=== PATIENT | female | born 1945 | race Caucasian/White ===

== ENCOUNTER 2020-07-01 23:50 | Outpatient (CLI) | payer MEDICARE, OTHER | END 2020-07-01 23:51 | disposition critical access hospital (66) | LOC: EMS 23:50 | PROVIDERS: ATTEND Surgery | DX: R11.2 Nausea with vomiting, unspecified (principal); R19.7 Diarrhea, unspecified | CPT/HCPCS: A0425; A0427 ==

== ENCOUNTER 2020-07-02 00:09 | Observation (INO) | payer MEDICARE, OTHER ==
[2020-07-02] MEDS ORDERED: SODIUM CHLORIDE 0.9% 1,000 ML IV STA (00:23)
--- NOTE | 2020-07-02 00:25 | ED Physician Documentation ---
PD HPI NVD - Stated complaint Stated Complaint: VOMITED BLOOD/DIARRHEA - Chief complaint Chief Complaint: Abd Pain - History obtained from History obtained from: Patient - History of Present Illness Timing - onset: Enter time (0500), Yesterday Timing - duration: Hours Timing - details: Abrupt onset, Still present Associated symptoms: Hematemesis. No: Fever, Abdominal pain Contributing factors: Bad food Improved by: Vomiting Similar symptoms before: Has not had sx before Recently seen: Not recently seen - Additonal information Additional information: Previously well 75-year-old female with history of hypertension and high cholesterol had enchiladas with her family the night prior to beginning symptoms. At 5 AM yesterday morning the patient developed acute nausea and v omiting. She states that she has been vomiting all day long she developed diarrhea associated with this and she felt that this was likely due to the food that she had cheese implicating the chicken. She has not had these symptoms previously. In route to the hospital in the ambulance the patient vomited some blood. She indicates that she has had some dry heaves and no no bleeding or blood and that she has had brown liquid stool. Review of Systems Constitutional: reports: Fatigue. denies: Fever, Chills Eyes: denies: Decreased vision Ears: denies: Ear pain Nose: denies: Rhinorrhea / runny nose, Congestion Throat: denies: Sore throat Cardiac: denies: Chest pain / pressure, Palpitations Respiratory: denies: Dyspnea, Cough GI: reports: Nausea, Vomiting, Diarrhea. denies: Abdominal Pain : denies: Dysuria, Frequency Skin: denies: Rash Musculoskeletal: denies: Neck pain, Back pain, Extremity pain Neurologic: reports: Generalized weakness, Other (dizziness). 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, Oophrectomy, Other (surgery for uterine cancer) - Present Medications Home Medications: Ambulatory Orders Medication Instructions Recorded Confirmed Losartan/Hydrochlorothiazide 1 each PO DAILY 12/29/13 07/02/20 [Losartan-Hctz 50-12.5 mg Tab] - Allergies Allergies/Adverse Reactions: Allergies Allergy/AdvReac Type Severity Reaction Status Date / Time Penicillins Allergy Mild Hives Verified 07/02/20 00:26 - Social History Does the pt smoke?: No Smoking Status: Never smoker Does the pt drink ETOH?: Yes PD ED PE NORMAL - Vitals Vital signs reviewed: Yes (hypertensive ) - General General: Alert and oriented X 3, Well developed/nourished, Other (appears mildly anxious) - HEENT HEENT: Atraumatic, PERRL, EOMI - Neck Neck: Supple, no meningeal sign - Cardiac Cardiac: RRR, No murmur - Respiratory Respiratory: No respiratory distress, Clear bilaterally - Abdomen Abdomen: Normal bowel sounds, Soft, Non distended, No organomegaly, Other (mild general tenderness) - Back Back: No CVA TTP, No spinal TTP - Derm Derm: Normal color, Warm and dry, No rash - Extremities Extremities: No deformity, No edema - Neuro Neuro: Alert and oriented 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, 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, No motor deficit, No sensory deficit, Normal speech Eye Opening: Spontaneous Motor: Obeys Commands Verbal: Oriented GCS Score: 15 - Psych Psych: Normal mood, Normal affect Results - Vitals Vitals: Vital Signs - 24 hr 07/02/20 07/02/20 07/02/20 00:10 00:24 02:20 Temperature 36.5 C 36.5 C Heart Rate 88 77 73 Respiratory 16 15 18 Rate Blood Pressure 156/82 H 156/83 H 154/79 H O2 Saturation 100 99 98 07/02/20 04:00 Temperature 36.7 C Heart Rate 73 Respiratory 13 Rate Blood Pressure 125/64 O2 Saturation 94 Oxygen O2 Source Room air - Labs Labs: Laboratory Tests 07/02/20 00:40 WBC 12.5 H RBC 4.33 Hgb 13.4 Hct 40.9 MCV 94.5 MCH 30.9 MCHC 32.8 RDW 13.0 Plt Count 243 MPV 10.5 Neut # (Auto) 11.4 H Lymph # (Auto) 0.6 L Lumpkin # (Auto) 0.4 Eos # (Auto) 0.0 Baso # (Auto) 0.0 Absolute Nucleated RBC 0.00 Nucleated RBC % 0.0 PD MEDICAL DECISION MAKING - ED course Complexity details: reviewed old records, reviewed results, re-evaluated patient, considered differential, d/w patient ED course: 75 y/o female with acute onset of vomiting and diarrhea has been sick for 24 hours with non-stop vomiting. She has not had diarrhea while she was in the ED but she did have vomiting of coffee grounds here and she had vomiting of blood in the ambulance. In the ED she is administered IV saline and potassium. Her K+ is 2.9 and she is receiving k-riders 10meq/hour. She remains nauseated. Her blood counts are normal to start. This appears to be food poisoning with persistent vomiting and now bleeding as well. I have asked the hospitalist to place the patient in observation for continued treatment. Departure - Departure Disposition: ED Place in Observation Clinical Impression: Gastroenteritis, Upper GI bleeding
[2020-07-02 00:47] LABS: BASOPHILS % (AUTO) 0.2 %; HGB - HEMOGLOBIN 13.4 g/dL (12.0-16.0); LYMPHOCYTES # (AUTO) 0.6 10^3/uL (1.5-3.5); LYMPHOCYTES % (AUTO) 5.1 %; MEAN CORPUSCULAR HEMOGLOBIN 30.9 pg (27.0-31.0); MEAN CORPUSCULAR HGB CONC 32.8 g/dL (32.0-36.0); MEAN CORPUSCULAR VOLUME 94.5 fL (81.0-99.0); MEAN PLATELET VOLUME 10.5 fL (7.9-10.8); MONOCYTES # (AUTO) 0.4 10^3/uL (0.0-1.0); NEUTROPHILS # (AUTO) 11.4 10^3/uL (1.5-6.6); NEUTROPHILS % (AUTO) 91.1 %; PLT - PLATELET COUNT 243 10^3/uL (130-450); RED BLOOD COUNT 4.33 10^6/uL (4.20-5.40); WHITE BLOOD COUNT 12.5 x10^3/uL (4.8-10.8)
[2020-07-02] MEDS ORDERED: ONDANSETRON 4 MG/2 ML VIAL ONE (02:38)
[2020-07-02] MEDS ORDERED: POTASSIUM CHLORIDE 10 MEQ CAPSULE PO ONE (02:50)
[2020-07-02] MEDS ORDERED: POTASSIUM CHLOR 10 MEQ/100 ML 10 MEQ/100 ML BAG IV ONE ×2 (03:25→05:01)
[2020-07-02] MEDS ORDERED: ONDANSETRON 4 MG/2 ML VIAL IVP PRN (06:16)
[2020-07-02] MEDS ORDERED: SODIUM CHLORIDE FLUSH 0.9% 10 ML SYRINGE IVP PRN (06:16)
[2020-07-02] MEDS ORDERED: PANTOPRAZOLE 40 MG VIAL IVP SCH (07:00)
[2020-07-02] MEDS ORDERED: POTASSIUM CHLOR 10 MEQ/100 ML 40 MEQ/400 ML BAG IV ONE (08:38)
[2020-07-02] MEDS ORDERED: NS W/20 MEQ KCL 1,000 ML IV ONE (08:38)
[2020-07-02] MEDS ORDERED: SODIUM CHLORIDE FLUSH 0.9% 10 ML SYRINGE ONE (08:39)
[2020-07-02] MEDS: NS W/20 MEQ KCL 1,000 ML IV SCH ×3 (13:52→22:21)
[2020-07-02] MEDS: POTASSIUM CHLOR 10 MEQ/100 ML 10 MEQ/100 ML BAG IV SCH ×5 (13:52→23:58)
[2020-07-02] MEDS: SODIUM CHLORIDE FLUSH 0.9% 10 ML SYRINGE IVP SCH ×3 (13:52→23:59)
--- NOTE | 2020-07-02 14:30 | PHARMACY PROGRESS NOTE ---
- Best Possible Medication History Admit Date and Time: 07/02/20 0616 Processed by: Nursing (COMBINED PHARMACY - NURSING COMPLETION) Medication History completed: Yes As the person ultimately responsible for medication therapy, providers are able to order a medication from an existing home medication list in [facility] via the "Reconcile Routine" prior to Confirmation of that medication by desktop support technician. Such practice is discouraged except when the physician, in their clinical judgment, deems that a medical need exists for a medication without regard to previous use.
[2020-07-02 16:33] LABS: ALBUMIN 3.9 g/dL (3.2-5.5); ALBUMIN/GLOBULIN RATIO 1.3 (1.0-2.2); BILIRUBIN,TOTAL 0.9 mg/dL (0.2-1.0); CALCIUM 8.5 mg/dL (8.5-10.3); CREATININE 0.7 mg/dL (0.4-1.0); TOTAL PROTEIN 6.8 g/dL (6.7-8.2)
[2020-07-02 16:33] LABS: CALCIUM 8.2 mg/dL (8.5-10.3); CREATININE 0.6 mg/dL (0.4-1.0)
[2020-07-02 16:55] LABS: HGB - HEMOGLOBIN 12.1 g/dL (12.0-16.0)
[2020-07-02 16:56] LABS: BASOPHILS % (AUTO) 0.2 %; HGB - HEMOGLOBIN 12.6 g/dL (12.0-16.0); LYMPHOCYTES # (AUTO) 1.1 10^3/uL (1.5-3.5); LYMPHOCYTES % (AUTO) 11.2 %; MEAN CORPUSCULAR HGB CONC 32.6 g/dL (32.0-36.0); MEAN CORPUSCULAR VOLUME 95.1 fL (81.0-99.0); MEAN PLATELET VOLUME 10.9 fL (7.9-10.8); MONOCYTES # (AUTO) 0.6 10^3/uL (0.0-1.0); NEUTROPHILS # (AUTO) 8.2 10^3/uL (1.5-6.6); NEUTROPHILS % (AUTO) 82.2 %; PLT - PLATELET COUNT 262 10^3/uL (130-450); RED BLOOD COUNT 4.06 10^6/uL (4.20-5.40); RED CELL DISTRIBUTION WIDTH 13.2 % (12.0-15.0)
--- NOTE | 2020-07-02 19:22 | HISTORY & PHYSICAL EXAMINATION ---
Chief Complaint - Chief Complaint Chief Complaint: Nausea, vomiting, diarrhea History of Present Illness - Admitted From Admitted From:: [facility] ED - History Obtained From Records Reviewed: Yes History obtained from: Patient - History of Present Illness HPI Comment/Other: Patient is a 75-year-old female with medical history significant for hypertension, hyperlipidemia, diabetes mellitus with diet control only who presented to the ED with complaint of nausea, vomiting and diarrhea. This has been going on for 24 hours. She lost count of how many episodes of diarrhea she has had. She reported some dizziness with standing as well. 24 hours prior to onset of his symptoms she had eaten some homemade chicken enchilada. She denied abdominal pain, dyspnea, chest pain or fever. She reported some chills. It was reported that a couple of have vomitus contained blood in it. This was not observed. She had 2 more episodes of vomiting upon arriving in the ED. Work-up showed a potassium of 2.9, WBC 12.5. The rest of her work-up was unremarkable. History - Past Medical History Cardiovascular: reports: Hypertension, High cholesterol Endocrine/Autoimmune: reports: Type 2 diabetes (diet controlled) BUSINESS EDITOR: reports: Uterine cancer MRSA Hx?: No - Past Surgical History /BUSINESS EDITOR: reports: Hysterectomy, Oophrectomy, Other (surgery for uterine cancer) HEENT: reports: Cataracts (bilaterally) - Family & Social History Family History Comment/Other: Patient's mother and sister had breast cancer Living arrangement: At home Living Situation: With family Social History Notes: Patient does not use tobacco products or recreational substances. She reports about 1 glass of wine daily. - POLST Patient has POLST: No POLST Status: Full Code Meds/Allgy - Home Medications Home Medications: Ambulatory Orders Medication Instructions Recorded Confirmed Losartan/Hydrochlorothiazide 1 each PO DAILY 12/29/13 12/29/13 [Losartan-Hctz 50-12.5 mg Tab] Atorvastatin Calcium 40 mg PO QPM 07/02/20 - Allergies Allergies/Adverse Reactions: Allergies Allergy/AdvReac Type Severity Reaction Status Date / Time Penicillins Allergy Mild Hives Verified 07/02/20 00:26 Review of Systems - Constitutional Constitutional: reports: Chills. denies: Fatigue, Fever - Eyes Eyes: denies: Pain, Dipolpia - Ears, Nose & Throat Ears, Nose & Throat: denies: Ear pain - Cardiovascular Cariovascular: reports: Lightheadedness. denies: Irregular heart rate, Palpitations, Edema - Respiratory Respiratory: denies: Cough, Sputum production, Wheezing, SOB at rest, SOB with exertion - Gastrointestinal Gastrointestinal: reports: Diarrhea, Nausea, Vomiting, Reflux/heartburn. denies: Abdominal pain, Abdominal distention - Genitourinary Genitourinary: denies: Dysuria, Frequency, Urgency, Hematuria - Musculoskeletal Musculoskeletal: denies: Muscle pain, Back pain, Muscle aches - Integumentary Integumentary: denies: Rash, Pruritis, Lesions - Neurological Neurological: reports: Dizziness. denies: General weakness, Focal weakness, Headache - Psychiatric Psychiatric: denies: Depression, Anxiety, Suicidal - Endocrine Endocrine: denies: Polyuria, Polydypsia - Hematologic/Lymphatic Hematologic/Lymphatic: denies: Anemia, Bruising, Petechiae Prior Level of Functionality: She is independent of activities of daily living Exam - Vital Signs Vital Signs: Vital Signs x48h Temp Pulse Resp BP Pulse Ox 07/02/20 16:00 37.3 C 81 20 128/77 98 - Physical Exam General Appearance: positive: No acute distress, Alert Eyes Bilateral: positive: PERRL, EOMI ENT: positive: Dry mucous membranes Neck: positive: No JVD, Trachea midline Respiratory: positive: Chest non-tender, No respiratory distress, Breath sounds nml. negative: Wheezes, Rales, Rhonchi Cardiovascular: positive: Regular rate & rhythm Abdomen: positive: Non-tender, Nml bowel sounds, No distention. negative: Guarding, Rebound Back: positive: Nml inspection Skin: positive: Color nml, No rash, Warm, Dry Extremities: positive: Non-tender, Full ROM, Nml appearance, No pedal edema Neurologic/Psychiatric: positive: Oriented x3, Mood/affect nml Conclusion/Plan - Problem List (1) Gastroenteritis Conclusion/Plan: Please secondary to eating something bad. Patient put on a clear liquid diet. Patient also receiving IV hydration. We will continue supportive therapy but abstain from giving any antidiarrheal medications. Expectation is that this will run its course. (2) Hypokalemia Conclusion/Plan: Likely secondary to vomiting and or diarrhea. Patient was given 20 mEq of potassium chloride IV in the ED. We will continue potassium chloride 10 mEq q. 1 hour x 4. Patient also has 20 mEq in IV normal saline solution which is running at 125 mils an hour. We will recheck and correct as indicated. (3) Hypertension Conclusion/Plan: On losartan/HCTZ. We will continue. (4) Hyperlipidemia Conclusion/Plan: On atorvastatin. (5) Diabetes mellitus Conclusion/Plan: Patient reports it is diet controlled. She has never been on any medications. Accu-Cheks q. before meals and at bedtime. If indicated will order sliding scale insulin. Qualifiers: Diabetes mellitus type: type 2 - Lab Results Fish Bones: 07/02/20 14:47 07/02/20 12:19 Core Measures - Anticipated LOS I expect patient to be DC'd or transferred within 96 hours.: Yes - DVT/VTE - Prophylaxis VTE/DVT Device ordered at admit?: Yes VTE/DVT Prophylaxis med ordered at admit?: Yes
[2020-07-02 20:08] LABS: BILIRUBIN,URINE NEGATIVE (NEGATIVE); GLUCOSE, URINE (UA) >=1000 mg/dL (NEGATIVE); KETONES,URINE (UA) 40 mg/dL (NEGATIVE); LEUKOCYTE ESTERASE, URINE SMALL (NEGATIVE); NITRITE,URINE NEGATIVE (NEGATIVE); OCCULT BLOOD,URINE NEGATIVE (NEGATIVE); PH,URINE 5.5 PH (5.0-7.5); PROTEIN,URINE NEGATIVE (NEGATIVE); UROBILINOGEN,URINE 0.2 (NORMAL) E.U./dL (NORMAL)
[2020-07-02 20:09] LABS: BACTERIA,URINE Few /HPF (None Seen); CLARITY,URINE CLEAR (CLEAR); RBC,URINE 0-5 /HPF (0-5); SQUAMOUS EPITHELIAL CELL,UR MANY Squamous (<= Few)
[2020-07-02] MEDS ORDERED: POTASSIUM CHLORIDE 20 MEQ TABLET PO ONE (20:12)
[2020-07-02 20:37] LABS: INR 1.2 (0.8-1.2); PT - PROTHROMBIN TIME 12.9 secs (9.9-12.6)
[2020-07-02 20:38] LABS: PARTIAL THROMBOPLASTIN TIME 24.6 secs (24.9-33.3)
[2020-07-02] MEDS ORDERED: ATORVASTATIN 40 MG TABLET PO SCH (21:00)
[2020-07-02] MEDS: LOSARTAN 50 MG TABLET PO SCH (21:20)
[2020-07-03] MEDS: POTASSIUM CHLOR 10 MEQ/100 ML 10 MEQ/100 ML BAG IV SCH (01:28)
[2020-07-03 05:38] LABS: BASOPHILS # (AUTO) 0.1 10^3/uL (0.0-0.1); BASOPHILS % (AUTO) 0.6 %; EOSINOPHILS # (AUTO) 0.1 10^3/uL (0.0-0.7); EOSINOPHILS % (AUTO) 0.9 %; LYMPHOCYTES # (AUTO) 2.1 10^3/uL (1.5-3.5); LYMPHOCYTES % (AUTO) 24.2 %; MEAN CORPUSCULAR HEMOGLOBIN 31.4 pg (27.0-31.0); MEAN CORPUSCULAR HGB CONC 33.1 g/dL (32.0-36.0); MEAN PLATELET VOLUME 10.6 fL (7.9-10.8); MONOCYTES # (AUTO) 0.6 10^3/uL (0.0-1.0); MONOCYTES % (AUTO) 6.8 %; NEUTROPHILS # (AUTO) 5.8 10^3/uL (1.5-6.6); NEUTROPHILS % (AUTO) 67.2 %; PLT - PLATELET COUNT 219 10^3/uL (130-450); RED BLOOD COUNT 3.82 10^6/uL (4.20-5.40); RED CELL DISTRIBUTION WIDTH 13.4 % (12.0-15.0); WHITE BLOOD COUNT 8.6 x10^3/uL (4.8-10.8)
[2020-07-03 05:47] LABS: CALCIUM 8.3 mg/dL (8.5-10.3); CREATININE 0.6 mg/dL (0.4-1.0)
[2020-07-03] MEDS: NS W/20 MEQ KCL 1,000 ML IV SCH (06:23)
[2020-07-03 08:51] VITALS: BP 127/70
[2020-07-03] MEDS ORDERED: hydroCHLOROthiazide 12.5 MG CAPSULE PO SCH (09:00)
[2020-07-03] MEDS ORDERED: LOSARTAN 50 MG TABLET PO SCH (09:00)
[2020-07-03] MEDS: LOSARTAN 50 MG TABLET PO SCH (09:29)
[2020-07-03] MEDS: SODIUM CHLORIDE FLUSH 0.9% 10 ML SYRINGE IVP SCH (09:31)
--- NOTE | 2020-07-03 10:46 | Discharge Plan ---
Discharge Plan Problem Reviewed?: Yes Disposition: Home, Self Care Condition: Stable Diet: Soft Activity Restrictions: Activity as Tolerated Shower Restrictions: No (fall precaution) Instruction Topics: ED Gastroenteritis Viral, Hypokalemia Dc Health Concerns: gastroenteritis with nausea, vomiting and diarrhea Plan of Treatment: you tolerate diet without nausea, vomiting and diarrhea, or abdominal diarrhea now. Your potassium level is normal now. advise you keep hydration and eat soft diet first, and advanced diet as you tolerate. Care Goals: stabilization and improvement of your medical conditions Assessment: discussed the care plan with you, you understood. Additional Instructions or Follow Up instructions: you may followup with your PCP in one to two weeks. Should your symptoms return or worsen, you may present ER or call 911 for help. No Smoking: If you smoke, Please STOP! Call for help.
--- NOTE | 2020-07-03 10:57 | DISCHARGE SUMMARY ---
Discharge Summary Admit Date: 07/02/20 Discharge Date: 07/03/20 Discharging Provider: Boo nash Primary Care Provider: Maria Isabel Quinonez Condition at Discharge: Stable Discharge Disposition: 01 Home, Self Care Discharge Facility Name: home - DIAGNOSES Discharge Diagnoses with Status of Each Condition: (1) Gastroenteritis Resolved, patient tolerated diet, without nausea, vomiting, diarrhea, or abdominal pain. (2) Hypokalemia Resolved. (3) Hypertension Stable, continue home medication regiment (4) Hyperlipidemia stable (5) Diabetes mellitus Stable, patient is on dietary control. Advised the patient follow-up with her PCP to continue management - [facility] History of Present Illness: refer from Dr. Lennon's HPI on 07/02/2020 Patient is a 75-year-old female with medical history significant for hypertension, hyperlipidemia, diabetes mellitus with diet control only who presented to the ED with complaint of nausea, vomiting and diarrhea. This has been going on for 24 hours. She lost count of how many episodes of diarrhea she has had. She reported some dizziness with standing as well. 24 hours prior to onset of his symptoms she had eaten some homemade chicken enchilada. She denied abdominal pain, dyspnea, chest pain or fever. She reported some chills. It was reported that a couple of have vomitus contained blood in it. This was not observed. She had 2 more episodes of vomiting upon arriving in the ED. Work-up showed a potassium of 2.9, WBC 12.5. The rest of her work-up was unremarkable. - HOSPITAL COURSE Hospital Course: Patient was admitted for nausea, vomiting, diarrhea and hypokalemia at 2.9. Patient likely had viral gastroenteritis. After the patient was given intravenous IV fluids, bowel rest, potassium replaced, patient symptoms were resolved. Patient reported she use dietary control to control her DM, decline medications. Advised patient keep hydration, Advance diet as tolerated, follow- up with PCP to continue to manage her diabetes. Patient is discharged as hemodynamic stable status - ALLERGIES Allergies/Adverse Reactions: Allergies Allergy/AdvReac Type Severity Reaction Status Date / Time Penicillins Allergy Mild Hives Verified 07/02/20 00:26 - MEDICATIONS Home Medications: Ambulatory Orders Medication Instructions Recorded Confirmed Losartan/Hydrochlorothiazide 1 each PO DAILY 12/29/13 12/29/13 [Losartan-Hctz 50-12.5 mg Tab] Atorvastatin Calcium 40 mg PO QPM 10/12/20 - PHYSICAL EXAM AT DISCHARGE General Appearance: positive: No acute distress, Alert. negative: Lethargic Eyes Bilateral: positive: Normal inspection, PERRL, No lid inflammation ENT: positive: ENT inspection nml, No signs of dehydration. negative: Purulent nasal drainage Neck: positive: Nml inspection, Thyroid nml, Trachea midline. negative: Thyromegaly, Tracheal deviation Respiratory: positive: Chest non-tender, No respiratory distress, Breath sounds nml. negative: Wheezes, Rales, Rhonchi Cardiovascular: positive: Regular rate & rhythm, No murmur. negative: Tachycardia, Bradycardia, Systolic murmur, Diastolic murmur Peripheral Pulses: positive: 2+ Abdomen: positive: Non-tender, Nml bowel sounds, No distention. negative: Tenderness, Guarding, Rebound Back: positive: Nml inspection Skin: positive: Color nml, No rash, Warm, Dry. negative: Cyanosis, Diaphoresis, Pallor Extremities: positive: Non-tender, Full ROM, Nml appearance. negative: Calf tenderness Neurologic/Psychiatric: positive: Oriented x3, Motor nml, Sensation nml, Mood/affect nml. negative: Weakness, Sensory loss, Facial droop, Slurred/abnml speech, Depressed mood/affect - LABS Result Diagrams: 07/03/20 05:05 07/03/20 05:30 - FOLLOW UP Follow Up: you tolerate diet without nausea, vomiting and diarrhea, or abdominal diarrhea now. Your potassium level is normal now. advise you keep hydration and eat soft diet first, and advanced diet as you tolerate. you may followup with your PCP in one to two weeks, followup with PCP for diabetes management, Should your symptoms return or worsen, you may present ER or call 911 for help. - TIME SPENT Time Spent in Discharge (Minutes): 30
== END 2020-07-03 11:45 | disposition home or self-care (01) ==
LOC: EDBD → ED 00:09 → MS2 06:16
PROVIDERS: ADMIT Internal Medicine; ATTEND Nurse Practitioner Gerontology
DX: K52.9 Noninfective gastroenteritis and colitis, unspecified (principal); E87.6 Hypokalemia; I10 Essential (primary) hypertension; E78.5 Hyperlipidemia, unspecified; E11.9 Type 2 diabetes mellitus without complications
CPT/HCPCS: 36415; 80048; 80053; 81001; 83690; 83735; 85014; 85018; 85025; 85610; 85730; 86850; 86900; 86901; 96361; 96365; 96366; 96368; 99284; 99285; A9270; G0378; 81003; 87086